=== PATIENT | male | born 1980 | race African-American/Black ===

== ENCOUNTER 2016-12-20 15:57 | Emergency (ER) | payer BC ==
[2016-12-20 16:42] VITALS: BP 129/68; PULSE 67; TEMP 98.4; BMI 21.1
--- NOTE | 2016-12-20 18:09 | PDOC ---
History of Present Illness - General Chief Complaint: Pain, Acute Stated Complaint: LUMP/ LT SIDE Time Seen by Provider: 12/20/16 16:36 History Source: Patient, Parent(s) Exam Limitations: No Limitations - History of Present Illness Initial Comments: 12/20/16 18:05 CC sore throat, fever x today; with cough Past History - Past Medical History Allergies/Adverse Reactions: Allergies Allergy/AdvReac Type Severity Reaction Status Date / Time No Known Allergies Allergy Verified 12/20/16 16:42 Home Medications: Ambulatory Orders NK [No Known Home Medication] 12/20/16 Other medical history: denies - Psycho/Social/Smoking Cessation Hx Suicidal Ideation: No Smoking History: Never smoked Information on smoking cessation initiated: No Substance Use Type: None Review of Systems - Review of Systems Constitutional: No: Symptoms Reported HEENTM: Yes: Throat Pain, Throat Swelling. No: Symptoms Reported, Nose Pain, Nose Congestion Respiratory: No: Symptoms reported Cardiac (ROS): No: Symptoms Reported ABD/GI: No: Symptoms Reported : No: Symptoms Reported Musculoskeletal: No: Symptoms Reported *Physical Exam - Vital Signs Last Vital Signs Temp Pulse Resp BP Pulse Ox 98.4 F 67 14 129/68 98 12/20/16 16:36 12/20/16 16:36 12/20/16 16:36 12/20/16 16:36 12/20/16 16:36 - Physical Exam General Appearance: Yes: Appropriately Dressed. No: Apparent Distress HEENT: positive: TMs Normal, Pharyngeal Erythema, Tonsillar Exudate, Tonsillar Erythema. negative: Nasal Congestion, Rhinorrhea, TM Bulging, TM Dull, TM Erythema Neck: positive: Tender, Lymphadenopathy (R), Lymphadenopathy (L). negative: Rigid, Supple Respiratory/Chest: positive: Lungs Clear, Normal Breath Sounds. negative: Chest Tender, Accessory Muscle Use Cardiovascular: positive: Regular Rhythm, Regular Rate Gastrointestinal/Abdominal: positive: Normal Bowel Sounds, Flat, Soft, Organomegaly. negative: Tender Medical Decision Making - Medical Decision Making 12/20/16 18:07 positive for BHSGA today; will trest with motrin and po Pcn VK *DC/Admit/Observation/Transfer Diagnosis at time of Disposition: Acute streptococcal pharyngitis - Discharge Dispostion Disposition: HOME Condition at time of disposition: Stable Admit: No - Patient Instructions Additional Instructions: rest; lots of fluids; motrin for pain; return for increased symptoms - Post Discharge Activity Work/School Note: Back to School
--- NOTE | 2016-12-20 18:26 | PDOC ---
History of Present Illness - General Chief Complaint: Pain, Acute Stated Complaint: LUMP/ LT SIDE Time Seen by Provider: 12/20/16 16:36 History Source: Patient, Parent(s) Exam Limitations: No Limitations - History of Present Illness Initial Comments: 12/20/16 18:21 CC wants lump looked at to left chest wall x > 1year; no growth noted Associated Symptoms: denies: denies symptoms, chest pain, cough, fever/chills, nausea/vomiting Past History - Past Medical History Allergies/Adverse Reactions: Allergies Allergy/AdvReac Type Severity Reaction Status Date / Time No Known Allergies Allergy Verified 12/20/16 16:42 Home Medications: Ambulatory Orders Ibuprofen Oral Suspension [Motrin Oral Suspension -] 400 mg PO Q6H #140 ml 12/20 Other medical history: denies - Psycho/Social/Smoking Cessation Hx Suicidal Ideation: No Smoking History: Never smoked Information on smoking cessation initiated: No Substance Use Type: None Review of Systems - Review of Systems Constitutional: No: Symptoms Reported HEENTM: No: Symptoms Reported Respiratory: Yes: Other (chest wall nodular). No: Symptoms reported, Cough *Physical Exam - Vital Signs Last Vital Signs Temp Pulse Resp BP Pulse Ox 98.4 F 67 14 129/68 98 12/20/16 16:36 12/20/16 16:36 12/20/16 16:36 12/20/16 16:36 12/20/16 16:36 - Physical Exam General Appearance: Yes: Appropriately Dressed. No: Apparent Distress HEENT: positive: TMs Normal, Pharynx Normal Neck: positive: Supple. negative: Tender, Rigid, Lymphadenopathy (R), Lymphadenopathy (L) Respiratory/Chest: positive: Other (1 cm nodular , non tender left lateral CW, non fluct, no redness at level nipple mid axillary line). negative: Chest Tender, Lungs Clear, Normal Breath Sounds Cardiovascular: positive: Regular Rhythm, Regular Rate. negative: Murmur Medical Decision Making - Medical Decision Making 12/20/16 18:25 please note surgical PA note and referral to surgeon Dr Cole; *DC/Admit/Observation/Transfer Diagnosis at time of Disposition: Strep pharyngitis, Mass of left chest wall - Discharge Dispostion Disposition: HOME Condition at time of disposition: Stable - Prescriptions Prescriptions: Ibuprofen Oral Suspension [Motrin Oral Suspension -] 400 mg PO Q6H #140 ml - Referrals Referrals: Seth Cole MD [Staff Physician] - Fernando Garvey MD [Staff Physician] - - Patient Instructions Additional Instructions: Follow-up with Dr. Cole in the office at [phone], ask for Maricel when scheduling your appointment for Dr. Cole. Also may follow-up with Dr. Lopez for your primary care health at the above number also. [phone]. - Post Discharge Activity Work/School Note: Back to School
--- NOTE | 2016-12-20 19:26 | CONSULT ---
- Consultation REQUESTING PROVIDER: Dr. Cole-general surgery CONSULT REQUEST: We have been asked to surgically evaluate this patient for left sided chest mass. PCP:none HISTORY OF PRESENT ILLNESS:The patient is a 36 yo male who came to the Er for evaluation of a left chest mass. He has had the mass x 1 year and it gives him intermittent pain. The mass has not increased in size. In the past he had a cxr and saw a physician for the mass but never follow up. He denies any fevers, cough or past medical history. No history of rib fracture. PMHx: denies PSHx: denies Home Medications Medication Instructions Recorded Ibuprofen Oral Suspension [Motrin 400 mg PO Q6H #140 ml 12/20/16 Oral Suspension -] Allergies Allergy/AdvReac Type Severity Reaction Status Date / Time No Known Allergies Allergy Verified 12/20/16 16:42 REVIEW OF SYSTEMS: CONSTITUTIONAL: Absent: fever, chills, CARDIOVASCULAR: Absent: chest pain, syncope RESPIRATORY: Absent: cough, shortness of breath GASTROINTESTINAL: Absent: abdominal pain, abdominal distension, nausea GENITOURINARY: Absent: dysurian MUSCULOSKELETAL: Absent: myalgia, arthralgia Present: occasion left shoulder pain SKIN: Absent: rash, no redness to the left chest HEMATOLOGIC/IMMUNOLOGIC: Absent: easy bleeding, easy bruising, chronic infections PHYSICAL EXAM: GENERAL: Awake, alert, and fully oriented, in no acute distress. HEAD: Normal with no signs of trauma. EYES: PERRL, sclera anicteric, conjunctiva clear. NECK: Normal ROM, supple. LUNGS: Clear to auscultation bilat anteriorly. No wheezes. Left chest with mobile palpable mass to left lateral chest at nipple level in mid axillary line. Mild tenderness, mass approx 1 cm in size. No skin changes. No axillary LAD.cx HEART: Regular rate and rhythm. No murmurs ABDOMEN: Soft, nontender, not distended, normoactive bowel sounds, no guarding, no rebound. Umbilical hernia defect without tenderness and is reducible. MUSCULOSKELETAL: Normal ROM at all joints. No bony deformities or tenderness. No CVA tenderness. UPPER EXTREMITIES: 2+ pulses, warm, well-perfused. No cyanosis. Cap refill <2 seconds. No peripheral edema. NEUROLOGICAL: Normal speech, gait steady. PSYCH: Cooperative. Good eye contact. Appropriate mood and affect. SKIN: Warm, dry, normal turgor, no rashes or lesions noted. Vital Signs Temperature 98.4 F 12/20/16 16:36 Pulse Rate 67 12/20/16 16:36 Respiratory Rate 14 12/20/16 16:36 Blood Pressure 129/68 12/20/16 16:36 O2 Sat by Pulse Oximetry (%) 98 12/20/16 16:36 Problem List - Problems (1) Mass of chest wall, left Assessment/Plan: Spoke with Dr. Cole and gave instructions for the patient to follow-up with him in the office to schedule possible removal of the left subcutaneous mass. Also of note is a reducbile umbilical hernia. Completed the discharge instructions for the patient to follow-up with Dr. Cole in the office at [phone] Code(s): R22.2 - LOCALIZED SWELLING, MASS AND LUMP, TRUNK Visit type - Case Type Case Type: ED Admission - Emergency Emergency Visit: Yes Care time: The patient presented to the Emergency Department on the above date and was hospitalized for further evaluation of their emergent condition. - New patient This patient is new to me today: Yes Date on this admission: 12/20/16 - Critical Care Critical Care patient: No
== END 2016-12-20 18:39 | disposition home or self-care (01) ==
LOC: JERFT 15:57
DX: J02.0 Streptococcal pharyngitis (principal)
CPT/HCPCS: 71020-TC; 99281-25